=== PATIENT | male | born 1980 | race African-American/Black ===

== ENCOUNTER 2022-05-15 15:19 | Emergency (ER) | payer MEDICAID ==
[~2022-05-15] VITALS: Ht 175.3 cm; Wt 80.3 kg
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
--- NOTE | 2022-05-15 16:28 | NUR ---
RETURNED FROM CT
[2022-05-15] MEDS ORDERED: IBUP-1955 PO (17:16)
[2022-05-15] MEDS ORDERED: CYCL10TA9 PO (17:16)
[2022-05-15] MEDS ORDERED: IBUPROFEN 600 MG TABLET ONE (17:26)
[2022-05-15] MEDS: IBUPROFEN 600 MG TABLET PO ONE (17:28)
--- NOTE | 2022-05-15 17:30 | NUR ---
Patient discharged to home ambulating by self and in stable condition. Written and verbal after care instructions given. Patient verbalizes understanding of instruction.
[2022-05-15 17:32] VITALS: BP 122/72
== END 2022-05-15 17:33 | disposition home or self-care (01) ==
LOC: ER 15:19
DX: S16.1XXA Strain of muscle, fascia and tendon at neck level, initial encounter (principal); R51.9 Headache, unspecified; V32.5XXA Driver of three-wheeled motor vehicle injured in collision with two- or three-wheeled motor vehicle in traffic accident, initial encounter; Y93.89 Activity, other specified; Y92.89 Other specified places as the place of occurrence of the external cause; Y99.8 Other external cause status
CPT/HCPCS: 72125-TC